=== PATIENT | male | born 1990 | race Caucasian/White ===

== ENCOUNTER 2021-09-15 13:54 | Inpatient (IN) | payer OTHER ==
[~2021-09-15] VITALS: Ht 193 cm; Wt 102.1 kg
[2021-09-15 13:58] VITALS: BP 117/59
[2021-09-15] MEDS ORDERED: PROZAC 10 MG CA10 MG PO (14:03)
[2021-09-15 14:54] LABS: ABSOLUTE NEUTROPHILS 8.7 thou/uL (1.4-8.2); BASOPHILS 0.7 % (0.0-2.0); EOSINOPHILS 0.4 % (0.0-3.0); HEMATOCRIT 45.7 % (42.0-52.0); HEMOGLOBIN 15.5 gm/dL (14.0-18.0); LYMPHOCYTES 18.5 % (24.0-44.0); MCH 28.3 pg (26.0-34.0); MCHC 33.8 g/dL (28.0-37.0); MCV 83.7 fL (80.0-100.0); MONOCYTES 5.9 % (1.0-8.0); PLATELET COUNT 246 thou/uL (150-400); POLYS 74.5 % (36.0-66.0); RBC 5.47 mil/uL (4.50-6.00); RDW 12.4 % (10.5-14.5); WBC 11.7 thou/uL (4.0-11.0)
[2021-09-15 14:59] LABS: CALCIUM 9.1 mg/dL (8.5-10.1); CREATININE 1.4 mg/dL (0.7-1.3); POTASSIUM 3.6 mmol/L (3.5-5.1)
[2021-09-15 15:05] LABS: ALBUMIN 4.2 g/dL (3.4-5.0); TOTAL BILIRUBIN 0.4 mg/dL (0.2-1.0); TOTAL PROTEIN 7.8 g/dL (6.4-8.2)
[2021-09-15 16:50] VITALS: BP 148/67
[2021-09-15 17:22] VITALS: BP 143/69
[2021-09-15 17:48] LABS: URINE BILIRUBIN NEGATIVE (Negative); URINE BLOOD NEGATIVE (Negative); URINE CLARITY CLEAR; URINE COLOR YELLOW; URINE GLUCOSE-RANDOM* NEGATIVE (Negative); URINE KETONES TRACE (Negative); URINE LEUKOCYTES-REFLEX NEGATIVE (Negative); URINE NITRITE-REFLEX NEGATIVE (Negative); URINE PROTEIN (DIPSTICK) NEGATIVE (Negative); URINE SPECIFIC GRAVITY 1.015 (1.005-1.035); URINE UROBILINOGEN 0.2 E.U./dl (0.2-1.0)
[2021-09-15 17:55] LABS: AMP/METHAMP Negative (Negative); BARBITURATES Negative (Negative); BENZODIAZEPINES Negative (Negative); COCAINE Negative (Negative); METHADONE Negative (Negative); OPIATES POSITIVE (Negative); PCP Negative (Negative)
[2021-09-15 20:07] VITALS: BP 129/68
--- NOTE | 2021-09-16 03:45 | NUR ---
ASUMED PT CARE AT 1900.PT'S AT BEDSIDE AT SHIFT CHANGE.PT C/O PAIN ON HIS R ARM AND HEAD,MANAGED WITH MED.PT HAS A LOW GRADE TEMP AT START OF SHIFT,WAS 98.3 ON RECHECK.PT UP ADLIB IN HIS ROOM PER PHYSICIAN.DRSG TO HIS R STRINGER CHANGED.PT ABLE TO MAKE HIS NEEDS KNOWN.CALL LIGHT WITHIN REACH.
[2021-09-16 04:00] VITALS: BP 107/59
[2021-09-16 07:28] VITALS: BP 107/63
[2021-09-16 12:00] VITALS: BP 107/63
--- NOTE | 2021-09-16 12:23 | NUR ---
Assumed pt care at 0700. pt was alert and oriented x4. Calm and cooperative with care. UP at bossman. Continent of bowel and bladder. Makes needs known to staff. IV NS was discontinued prior to D/C. Pt brought him breakfast. Pt c/o shoulder pain. Hydrocondone administered twice this shift to manage pain. 1210 Pt was D/C home with . D/C instruction and prescription script was given to pt, Dr Palomino saw pt.
== END 2021-09-16 12:10 | disposition home or self-care (01) | DRG 552 ==
LOC: ER 13:54 → EROBS 17:10 → 4S 18:25
PROVIDERS: Physician Assistant; ADMIT Surgery; ATTEND Surgery
DX: S22.049A Unspecified fracture of fourth thoracic vertebra, initial encounter for closed fracture (principal); S81.811A Laceration without foreign body, right lower leg, initial encounter; X58.XXXA Exposure to other specified factors, initial encounter; Y93.89 Activity, other specified; Y92.89 Other specified places as the place of occurrence of the external cause; Y99.8 Other external cause status; Z88.8 Allergy status to other drugs, medicaments and biological substances; F32.9 Major depressive disorder, single episode, unspecified; Z20.822 Contact with and (suspected) exposure to COVID-19
CPT/HCPCS: 10100